=== PATIENT | female | born 1965 | race Caucasian/White ===

== ENCOUNTER 2017-08-14 17:02 | Emergency (ER) | payer MEDICAID ==
--- NOTE | 2017-08-14 18:25 | ED Physician Chart ---
ED Chief Complaint/HPI - Patient Information Date Seen:: 08/14/17 Time Seen:: 17:45 Chief Complaint:: left knee and low back pain History of Present Illness:: Yesterday patient fell down one step landing on cement. She thinks she rolled when she landed. Allergies:: Allergies Allergy/AdvReac Type Severity Reaction Status Date / Time No Known Allergies Allergy Verified 08/14/17 17:24 Vitals:: Vital Signs - 8 hr 08/14/17 17:19 Temp 97.8 F HR 98 RR 16 BP 124/77 O2 Sat % 97 Historian:: Patient Review:: Nurse's Note Reviewed ED Review of Systems - Review of Systems General/Constitutional: No fever, No chills Skin: No skin lesions Head: No headache Eyes: No loss of vision ENT: Earache, Nasal drainage Neck: No neck pain Cardio Vascular: No chest pain, No palpitations Pulmonary: No SOB GI: No nausea, No vomiting, No diarrhea G/U: No dysuria Musculoskeletal: Bone or joint pain, Back pain Psychiatric: No prior psych history, No depression Hematopoietic: No bruising ED Past Medical History - Past Medical History Past Medical History: No significant medical hx Family History: HTN Social History: Non Smoker, No Alcohol Surgical History: other (partial hysterectomy) Psychiatricy History: None Medication: None ED Physical Exam - Physical Examination General/Constitutional: Well-developed, well-nourished, Alert, No distress Head: Atraumatic Eyes: Lids, conjuctiva normal, PERRL Skin: Nl inspection, No rash ENMT: External ears, nose nl, TM canals nl Neck: No nuchal rigidity Respiratory: Nl effort/Exclusion, Clear to Auscultation Cardio Vascular: RRR, No murmur, gallop, rubs, NL S1 S2 GI: No tenderness/rebounding/guarding, No organomegaly : No CVA tenderness Extremities: Normal digits & nails Other Extremities comments:: Straight leg raising of 90 bilaterally; deep tendon reflexes knees and ankles 2 out of 4; left knee: Full range of motion; collateral and cruciate ligaments stable; tenderness over the head of fibula Neuro/Psych: No focal deficits Misc: No paraspinal tenderness ED Labs/Radiology/EKG Results - Radiology Results Results: Lumbosacral x-ray showed mild arthritic changes at L4 and L5; no fracture. Left knee x-ray was normal ED Assessment - Assessment General Assessment: 6 inch Nicholas wrap applied left knee. Suggested patient take two 200 mg ibuprofen 3 times a day for pain. ED Septic Shock - <6hrs of presentation: Vital Signs: Vital Signs - 8 hr 08/14/17 17:19 Temp 97.8 F HR 98 RR 16 BP 124/77 O2 Sat % 97 ED Reassessment (Disposition) - Reassessment Reassessment Condition:: Unchanged - Diagnosis Diagnosis:: Sprain left knee; lumbar strain - Aftercare/Follow up Instructions Aftercare/Follow-Up Instructions:: Refer to Discharge Instructions - Patient Disposition Discharge/Transfer:: Home Condition at Disposition:: Stable, Unchanged ED Discharge Plan - Patient Disposition Admit/Discharge/Transfer: PT DISCHARGED HOME Condition at Disposition: Stable Instructions: Low Back Sprain with Rehab-Sports[facility], Knee Sprain, [id number]
--- NOTE | 2017-08-15 09:09 | Diagnostic Imaging Report ---
Left knee 2 view Indication: Trauma Comparison: none Findings: Mild degenerative changes are noted with mild narrowing of the medial knee compartment. No evidence of acute fracture or joint effusion. No significant focal soft tissue swelling. Impression: No evidence of an acute fracture. Mild degenerative changes. In the setting of trauma, if clinical symptoms persist and there is continued concern for an occult fracture, follow up exams in 5-7 days is suggested.
--- NOTE | 2017-08-15 09:44 | Diagnostic Imaging Report ---
Lumbar spine 3 limited views Indication: Trauma Comparison: none Findings: Transitional vertebral body anatomy is noted with rudimentary ribs at L1. Moderate to advanced degenerative changes are seen with moderate disc space loss of height of what is assumed to be L5/S1. There is partial lumbarization of S1. There are calcifications seen along the anterior superior and anterior inferior endplate of the L4 vertebral body. No subluxation. Impression: Calcification seen along the anterior superior anterior inferior endplate of the L4 vertebral body. Findings may be due to previous trauma or represent limbus vertebra. Otherwise no evidence of an acute compression fracture or subluxation. Please correlate with patient's clinical history and old exams. If indicated a follow-up exam such as CT or MRI may be obtained for further assessment. Degenerative changes. Transitional vertebral body anatomy. In the setting of trauma, if clinical symptoms persist and there is continued concern for an occult fracture, follow up exams in 5-7 days is suggested.
== END 2017-08-14 19:01 | disposition home or self-care (01) ==
LOC: ER 17:02
DX: S83.92XA Sprain of unspecified site of left knee, initial encounter (principal); S39.012A Strain of muscle, fascia and tendon of lower back, initial encounter; X58.XXXA Exposure to other specified factors, initial encounter; Y93.89 Activity, other specified; Y92.89 Other specified places as the place of occurrence of the external cause; Y99.8 Other external cause status
CPT/HCPCS: 72100-TC; 73560-TC-LT; Z7502